=== PATIENT | female | born 1980 | race Caucasian/White ===

== ENCOUNTER 2019-06-06 15:19 | Emergency (ER) | payer SELFPAY ==
[~2019-06-06] VITALS: Ht 152.4 cm; Wt 81.8 kg
[2019-06-06 16:11] VITALS: BP 144/66
== END 2019-06-06 20:40 | disposition left against medical advice (07) ==
LOC: EMS 15:22
DX: G43.909 Migraine, unspecified, not intractable, without status migrainosus (principal); Z53.21 Procedure and treatment not carried out due to patient leaving prior to being seen by health care provider